=== PATIENT | male | born 1960 | race Caucasian/White ===

== ENCOUNTER 2017-03-21 07:26 | Day surgery (SDC) | payer OTHER ==
[2017-03-21] MEDS ORDERED: LACTATED RINGERS 1,000 ML IV.SOLN IV ONE (08:00)
[2017-03-21] MEDS ORDERED: SALINE FLUSH 10 ML DISP.SYRIN IVF ONE (08:00)
[2017-03-21] MEDS ORDERED: PROPOFOL 500 MG/50 ML VIAL IV ONE (08:00)
--- NOTE | 2017-03-24 12:16 | Operative Note ---
SURGEON: Timo Carias MD ANESTHESIA: MAC anesthesia. ESTIMATED BLOOD LOSS: None. COMPLICATIONS: None. FINDINGS: 1. Small polyp on the ileocecal valve completely removed with cold biopsy forceps. 2. Small hyperplastic-appearing polyp in the rectum removed with cold biopsy forceps. PREOPERATIVE DIAGNOSIS: Screening colonoscopy. POSTOPERATIVE DIAGNOSIS: Colon polyps. PROCEDURE PERFORMED: Colonoscopy with polypectomy. INDICATIONS FOR PROCEDURE: This is a 57-year-old man who presents for a screening colonoscopy. DESCRIPTION OF PROCEDURE: Patient was brought to the endoscopy suite and placed in the left lateral decubitus position. MAC anesthesia was administered by the business planning manager. A rectal examination was performed which was normal. The colonoscope was inserted and passed easily to the cecum. The appendiceal orifice and ileocecal valve were identified. The prep was very good. There was a small polyp on the ileocecal valve. It was completely removed with cold biopsy forceps. The colonoscope was slowly retracted being careful to inspect all herron. There was a greater than 6 minute withdrawal time. In the rectum, there was another very small polyp which appeared hyperplastic. This was also removed with cold biopsy forceps. The patient tolerated the procedure well. DISPOSITION: We will await his pathology to determine his need for follow up. [facility]ITAL[facility]
== END 2017-03-21 07:27 ==
LOC: OPSURG 07:26
PROVIDERS: ATTEND Colon & Rectal Surgery
DX: Z12.11 Encounter for screening for malignant neoplasm of colon (principal); K63.5 Polyp of colon; D12.0 Benign neoplasm of cecum; K62.1 Rectal polyp
CPT/HCPCS: 45380; 88305; J2704; J7120; S1016